=== PATIENT | male | born 1955 | race Caucasian/White ===

== ENCOUNTER 2017-05-22 12:07 | Emergency (ER) | payer OTHER ==
[2017-05-22 12:14] VITALS: TEMP 98
[2017-05-22] MEDS ORDERED: MORPHINE SULFATE 4 MG/ML SYRINGE IV STA (12:34)
[2017-05-22] MEDS ORDERED: ASPIRIN 81 MG CHEW PO STA (12:34)
[2017-05-22 13:07] LABS: Basophils # (A) 0.1 k/uL (0-0.2); Basophils % (A) 1 %; CH 32.7; CHCM 35.2; Eosinophils # (A) 0.1 k/uL (0-0.7); Eosinophils % (A) 1 %; HCT 45.1 % (39.0-53.0); HDW 2.61; HGB 15.8 gm/dL (13.0-17.5); Luc # (Auto) 0.25; Luc % (Auto) 4; Lymphocytes % (A) 34 %; MCH 32.7 pg (25.0-35.0); MCV 93.4 fL (80.0-100.0); Mean Platelet Volume 6.9; Monocytes # (A) 0.4 k/uL (0-1.0); Monocytes % (A) 7 %; Neutrophils # (A) 3.1 k/uL (1.3-7.7); Neutrophils % (A) 53 %; RBC 4.82 m/uL (4.30-5.90); RDW 13.2 % (11.5-15.5); WBC 5.8 k/uL (3.8-10.6); WBC (Perox) 5.15
[2017-05-22 13:17] LABS: ALT 62 U/L (21-72); AST 90 U/L (17-59); Alkaline Phosphatase 140 U/L (38-126); Amylase 64 U/L (30-110); Anion Gap 16 mmol/L; Blood Urea Nitrogen 16 mg/dL (9-20); Calcium 9.3 mg/dL (8.4-10.2); Carbon Dioxide 26 mmol/L (22-30); Chloride 103 mmol/L (98-107); Glucose 95 mg/dL (74-99); Magnesium 1.4 mg/dL (1.6-2.3); Non-African American GFR(MDRD) >60 (>60 ml/min/1.73 sqM); Potassium 4.2 mmol/L (3.5-5.1); Sodium 145 mmol/L (137-145); Total Bilirubin 0.6 mg/dL (0.2-1.3); Total Protein 8.1 g/dL (6.3-8.2)
[2017-05-22 13:23] LABS: Partial Thromboplastin Time 23.5 sec (22.0-30.0)
--- NOTE | 2017-05-22 13:25 | XR ---
EXAMINATION TYPE: XR chest 2V DATE OF EXAM: 05/22/2017 COMPARISON: 08/16/2011 HISTORY: Shortness of breath TECHNIQUE: Frontal and lateral views of the chest are obtained. FINDINGS: Scattered senescent parenchymal changes noted. No evidence for infiltrate. No evidence for atelectasis. Heart size is stable. Mediastinal structures are stable and grossly unremarkable. No evidence for hilar prominence. Degenerative changes dorsal spine. IMPRESSION: 1. No evidence for acute pulmonary disease.
[2017-05-22 13:26] LABS: INR 1.2 (<1.1); Prothrombin Time 11.8 sec (9.0-12.0)
[2017-05-22 13:29] LABS: Creatine Kinase 48 U/L (55-170)
[2017-05-22 13:42] LABS: Creatine Kinase MB 0.7 ng/mL (0.0-2.4); Troponin I <0.012 ng/mL (0.000-0.034)
[2017-05-22 13:58] VITALS: RESP 18
[2017-05-22] MEDS ORDERED: RX INFO: IV CONTRAST WAS GIVEN 1 EACH MISC MISCELLANE PRN (14:31)
[2017-05-22] MEDS ORDERED: LORazepam 2 MG/ML SYRINGE IV STA (14:39)
[2017-05-22] MEDS ORDERED: MORPHINE SULFATE 4 MG/ML SYRINGE IVP STA (14:39)
--- NOTE | 2017-05-22 15:35 | CT ---
EXAMINATION TYPE: CT angio chest DATE OF EXAM: 05/22/2017 COMPARISON: NONE HISTORY: Right sided breast pain CT DLP: 364 mGycm CONTRAST: CT chest with contrast and 3D reconstruction with MIP imaging is performed with IV Contrast, patient injected with 100 mL of Omnipaque 350. Contrast-enhanced CT of the chest was performed through the course of the pulmonary arteries with berta g and mediastinal window settings submitted. 3D reconstruction with MIP imaging was also performed. PULMONARY ARTERIES: The pulmonary arteries and their major tributaries are patent. I do not see marie dence for sizable filling defect to suggest pulmonary embolic process. LUNGS: The lungs are clear and free of infiltrate. No evidence for atelectasis. No pulmonary nodule or mass is detected. No pleural effusion. MEDIASTINUM: Thoracic aorta is of normal caliber . The heart is not enlarged. No evidence for media stinal mass. No mediastinal lymph nodes greater than 1cm. HILAR STRUCTURES: No evidence for mass. No hilar lymph nodes greater than 1 cm. UPPER ABDOMEN: There is evidence of fatty liver. IMPRESSION: 1. No evidence for Pulmonary embolism at this time.
--- NOTE | 2017-05-22 15:54 | ED ---
General Adult HPI - General Chief complaint: Chest Pain Stated complaint: Chest Pain Time Seen by Provider: 05/22/17 12:34 Source: patient, family, RN notes reviewed Mode of arrival: wheelchair Limitations: no limitations - History of Present Illness Initial comments: 62-year-old male with past medical history of chronic alcoholism, and chronic pain presents with right-sided chest pain which has been present for 6 months. Patient states the pain is worsened over the last 3 days. He was evaluated by his primary care physician for this pain approximately 2 weeks ago. At that time he was taken off his methadone. Patient describes the pain as sharp, nonradiating right sided chest pain. Denies any nausea or vomiting. Denies any trauma. Denies fever or chills. States he last drank last night proximally 1 pint of alcohol. - Related Data Allergies Allergy/AdvReac Type Severity Reaction Status Date / Time No Known Allergies Allergy Verified 05/22/17 12:42 Review of Systems ROS Statement: Those systems with pertinent positive or pertinent negative responses have been documented in the HPI. ROS Other: All systems not noted in ROS Statement are negative. Constitutional: Denies: fever, chills Respiratory: Denies: cough, dyspnea Cardiovascular: Denies: palpitations, dyspnea on exertion, syncope Endocrine: Denies: fatigue Gastrointestinal: Denies: abdominal pain, nausea, vomiting Past Medical History Past Medical History: Hypertension History of Any Multi-Drug Resistant Organisms: None Reported Past Surgical History: Appendectomy Past Psychological History: No Psychological Hx Reported Smoking Status: Current some day smoker Past Alcohol Use History: Daily, Heavy Past Drug Use History: None Reported General Exam Limitations: no limitations General appearance: alert, in no apparent distress Head exam: Present: atraumatic, normocephalic Eye exam: Present: normal appearance, PERRL ENT exam: Present: normal exam, normal oropharynx, mucous membranes moist Neck exam: Present: normal inspection, tenderness, full ROM Respiratory exam: Present: normal lung sounds bilaterally, respiratory distress Cardiovascular Exam: Present: regular rate, normal rhythm, normal heart sounds, other (Reproducible right anterior chest pain. There is no mass, no erythema, no external signs of trauma.) GI/Abdominal exam: Present: soft. Absent: distended, tenderness Extremities exam: Present: normal inspection, normal capillary refill. Absent: pedal edema Neurological exam: Present: alert, oriented X3. Absent: motor sensory deficit Psychiatric exam: Present: normal affect, normal mood Skin exam: Present: warm, dry Course Vital Signs 05/22/17 05/22/17 05/22/17 12:10 13:57 14:26 Temperature 98 F Pulse Rate 107 H 100 113 H Respiratory 20 18 18 Rate Blood Pressure 169/89 139/76 141/80 O2 Sat by Pulse 95 97 Oximetry 05/22/17 15:59 Temperature Pulse Rate 118 H Respiratory 18 Rate Blood Pressure 144/98 O2 Sat by Pulse 94 L Oximetry - Reevaluation(s) Reevaluation #1: 05/22/17 16:07 Patient was reevaluated at 1530. Patient states his pain was improved. At the time he was concerned with alcohol withdrawal. He was given 1 mg of Ativan. As his last drink was yesterday evening. No signs of alcohol withdrawal at this time. EKG Findings - EKG Comments: EKG Findings:: 1224 shows normal sinus rhythm with a ventricular rate 97, DE interval 142, QRS duration 68, QTC is 454 which is normal. There is no ST segment elevation or depression, there is no T-wave inversion. Medical Decision Making - Medical Decision Making 62-year-old male presenting with 6 month history of right anterior chest pain which is sharp. Patient's pain is atypical and not concerning for cardiac causes. Laboratory studies reveal a elevated d-dimer. And given the patient's mild heart rate elevation and sharp chest pain in the CT of the chest with angiography is ordered. This is negative for pulmonary embolism or any acute findings. Results of his blood work and x-rays are discussed with the patient and his spouse. Patient is instructed to see his primary care physician regarding his alcohol consumption. He will continue his outpatient workup for his chest pain. Patient and his are agreeable with this plan. Chest x-ray shows no acute findings, CT angiography is negative for pulmonary embolus. Diagnosis: Atypical chest pain, chest wall pain. - Lab Data Result diagrams: 05/22/17 12:49 05/22/17 12:49 Lab Results 05/22/17 05/22/17 05/22/17 Range/Units 12:49 12:49 12:49 WBC (3.8-10.6) k/uL RBC (4.30-5.90) m/uL Hgb (13.0-17.5) gm/dL Hct (39.0-53.0) % MCV (80.0-100.0) fL MCH (25.0-35.0) pg MCHC (31.0-37.0) g/dL RDW (11.5-15.5) % Plt Count (150-450) k/uL Neutrophils % % Lymphocytes % % Monocytes % % Eosinophils % % Basophils % % Neutrophils # (1.3-7.7) k/uL Lymphocytes # (1.0-4.8) k/uL Monocytes # (0-1.0) k/uL Eosinophils # (0-0.7) k/uL Basophils # (0-0.2) k/uL PT 11.8 (9.0-12.0) sec INR 1.2 (<1.1) APTT 23.5 (22.0-30.0) sec D-Dimer 1.10 H (<0.60) mg/L FEU Sodium 145 (137-145) mmol/L Potassium 4.2 (3.5-5.1) mmol/L Chloride 103 (98-107) mmol/L Carbon Dioxide 26 (22-30) mmol/L Anion Gap 16 mmol/L BUN 16 (9-20) mg/dL Creatinine 0.74 (0.66-1.25) mg/dL Est GFR (MDRD) Af Amer >60 (>60 ml/min/1.73 sqM) Est GFR (MDRD) Non-Af >60 (>60 ml/min/1.73 sqM) Glucose 95 (74-99) mg/dL Calcium 9.3 (8.4-10.2) mg/dL Magnesium 1.4 L (1.6-2.3) mg/dL Total Bilirubin 0.6 (0.2-1.3) mg/dL AST 90 H (17-59) U/L ALT 62 (21-72) U/L Alkaline Phosphatase 140 H (38-126) U/L Total Creatine Kinase (55-170) U/L CK-MB (CK-2) (0.0-2.4) ng/mL CK-MB (CK-2) Rel Index Troponin I (0.000-0.034) ng/mL NT-Pro-B Natriuret Pep 15 pg/mL Total Protein 8.1 (6.3-8.2) g/dL Albumin 4.5 (3.5-5.0) g/dL Amylase 64 (30-110) U/L Lipase 177 (23-300) U/L 05/22/17 05/22/17 Range/Units 12:49 12:49 WBC 5.8 (3.8-10.6) k/uL RBC 4.82 (4.30-5.90) m/uL Hgb 15.8 (13.0-17.5) gm/dL Hct 45.1 (39.0-53.0) % MCV 93.4 (80.0-100.0) fL MCH 32.7 (25.0-35.0) pg MCHC 35.0 (31.0-37.0) g/dL RDW 13.2 (11.5-15.5) % Plt Count 244 (150-450) k/uL Neutrophils % 53 % Lymphocytes % 34 % Monocytes % 7 % Eosinophils % 1 % Basophils % 1 % Neutrophils # 3.1 (1.3-7.7) k/uL Lymphocytes # 2.0 (1.0-4.8) k/uL Monocytes # 0.4 (0-1.0) k/uL Eosinophils # 0.1 (0-0.7) k/uL Basophils # 0.1 (0-0.2) k/uL PT (9.0-12.0) sec INR (<1.1) APTT (22.0-30.0) sec D-Dimer (<0.60) mg/L FEU Sodium (137-145) mmol/L Potassium (3.5-5.1) mmol/L Chloride (98-107) mmol/L Carbon Dioxide (22-30) mmol/L Anion Gap mmol/L BUN (9-20) mg/dL Creatinine (0.66-1.25) mg/dL Est GFR (MDRD) Af Amer (>60 ml/min/1.73 sqM) Est GFR (MDRD) Non-Af (>60 ml/min/1.73 sqM) Glucose (74-99) mg/dL Calcium (8.4-10.2) mg/dL Magnesium (1.6-2.3) mg/dL Total Bilirubin (0.2-1.3) mg/dL AST (17-59) U/L ALT (21-72) U/L Alkaline Phosphatase (38-126) U/L Total Creatine Kinase 48 L (55-170) U/L CK-MB (CK-2) 0.7 (0.0-2.4) ng/mL CK-MB (CK-2) Rel Index 1.5 Troponin I <0.012 (0.000-0.034) ng/mL NT-Pro-B Natriuret Pep pg/mL Total Protein (6.3-8.2) g/dL Albumin (3.5-5.0) g/dL Amylase (30-110) U/L Lipase (23-300) U/L Disposition Clinical Impression: Atypical chest pain Disposition: HOME SELF-CARE Condition: Stable Instructions: Chest Pain (ED) Additional Instructions: Patient will return to the emergency department with worsening symptoms. Patient will follow up with primary care physician in the next several days. Referrals: Emerson Ortiz DO [Primary Care Provider] - 1-2 days Time of Disposition: 15:53
[2017-05-22 16:00] VITALS: BP 144/98; PULSE 118
== END 2017-05-22 16:04 | disposition home or self-care (01) ==
LOC: EC 12:07
DX: R07.89 Other chest pain (principal); F17.200 Nicotine dependence, unspecified, uncomplicated
CPT/HCPCS: 99285; 96374; 96375; 96376; 36415; 93005; 85379; 83880; 80053; 82150; 82550; 82553; 83690; 83735; 84484; 85025; 85610; 85730; 71020; 71275; J2060; J2270; Q9967

== ENCOUNTER 2017-07-15 15:25 | Observation (INO) | payer OTHER ==
[2017-07-15] MEDS ORDERED: SODIUM CHLORIDE 0.9% 1,000 ML IV ONE (15:50)
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
[2017-07-15] MEDS ORDERED: LORazepam 2 MG/ML SYRINGE IV PRN ×2 (16:37)
[2017-07-15] MEDS: SODIUM CHLORIDE 0.9% 1,000 ML with MVI, ADULT NO.4 WITH VIT K 10 ML, THIAMINE 100 MG, F... IV ONE ×8 (16:47→19:42)
[2017-07-15 16:59] LABS: Aty Lym Flag Slight; Basophils # (A) 0.1 k/uL (0-0.2); Basophils % (A) 1 %; CH 33.4; CHCM 34.1; Eosinophils # (A) 0.1 k/uL (0-0.7); Eosinophils % (A) 2 %; HCT 38.5 % (39.0-53.0); HDW 2.73; HGB 13.2 gm/dL (13.0-17.5); Luc # (Auto) 0.28; Luc % (Auto) 5; Lymphocytes # (A) 1.9 k/uL (1.0-4.8); Lymphocytes % (A) 35 %; MCH 33.5 pg (25.0-35.0); MCHC 34.1 g/dL (31.0-37.0); MCV 98.2 fL (80.0-100.0); Mean Platelet Volume 7.5; Monocytes # (A) 0.4 k/uL (0-1.0); Monocytes % (A) 7 %; Neutrophils # (A) 2.8 k/uL (1.3-7.7); Neutrophils % (A) 51 %; RBC 3.93 m/uL (4.30-5.90); RDW 14.9 % (11.5-15.5); WBC 5.5 k/uL (3.8-10.6); WBC (Perox) 5.66
[2017-07-15 17:00] LABS: Appearance,Urine Clear (Clear); Bilirubin,Urine Negative (Negative); Glucose,Urine (UA) Negative (Negative); Ketones,Urine Negative (Negative); Leukocyte Esterase,Urine Negative (Negative); Nitrite,Urine Negative (Negative); Protein,Urine Negative (Negative); Specific Gravity,Urine 1.004 (1.001-1.035); UA Billing (MACRO vs. MICRO) CHEM; Urobilinogen,Urine <2.0 mg/dL (<2.0)
[2017-07-15] MEDS ORDERED: KETOROLAC 30 MG/ML 1 ML VIAL IVP PRN (17:11)
[2017-07-15] MEDS ORDERED: IBUPROFEN 400 MG TAB PO PRN (17:11)
[2017-07-15] MEDS ORDERED: ONDANSETRON 4 MG/2 ML VIAL IVP PRN (17:11)
[2017-07-15] MEDS ORDERED: NALOXONE 0.4 MG/ML 1 ML VIAL IV PRN (17:11)
[2017-07-15 17:25] LABS: ALT 95 U/L (21-72); AST 178 U/L (17-59); Alkaline Phosphatase 142 U/L (38-126); Amylase 75 U/L (30-110); Anion Gap 13 mmol/L; Blood Urea Nitrogen 12 mg/dL (9-20); Calcium 8.9 mg/dL (8.4-10.2); Carbon Dioxide 28 mmol/L (22-30); Chloride 111 mmol/L (98-107); Glucose 106 mg/dL (74-99); Magnesium 1.2 mg/dL (1.6-2.3); Non-African American GFR(MDRD) >60 (>60 ml/min/1.73 sqM); Potassium 4.9 mmol/L (3.5-5.1); Sodium 152 mmol/L (137-145); Total Bilirubin 0.3 mg/dL (0.2-1.3); Total Protein 7.5 g/dL (6.3-8.2)
[2017-07-15 17:36] LABS: Alcohol 513 mg/dL
[2017-07-15 19:31] VITALS: RESP 18
[2017-07-15] MEDS: SODIUM CHLORIDE 0.9% 1,000 ML IV SCH (19:45)
[2017-07-15] MEDS: THIAMINE 100 MG TAB PO SCH (20:27)
[2017-07-15] MEDS: GABAPENTIN 400 MG CAP PO SCH (20:28)
[2017-07-15] MEDS: buPROPion SR 150 MG TABLET.ER PO SCH (20:28)
[2017-07-15] MEDS: MAGNESIUM SULFATE-D5W PMX 1 GM in DEXTROSE/WATER 1 100ML.BAG IVPB SCH ×2 (21:18→22:08)
[2017-07-16] MEDS: SODIUM CHLORIDE 0.9% 1,000 ML IV SCH ×2 (04:48→13:14)
[2017-07-16] MEDS: LORazepam 2 MG/ML SYRINGE IV PRN ×2 (04:48→09:31)
[2017-07-16] MEDS ORDERED: CARVEDILOL 6.25 MG TAB PO SCH (07:30)
[2017-07-16 08:06] VITALS: BP 147/90; PULSE 90; TEMP 98.3
[2017-07-16] MEDS ORDERED: Magnesium Replacement Protocol 1 EACH MISC MISCELLANE PRN (08:50)
[2017-07-16] MEDS ORDERED: PANTOPRAZOLE 40 MG/10 ML VIAL IV SCH (09:00)
[2017-07-16] MEDS: buPROPion SR 150 MG TABLET.ER PO SCH (09:51)
[2017-07-16] MEDS: MAGNESIUM SULFATE-D5W PMX 1 GM in DEXTROSE/WATER 1 100ML.BAG IVPB SCH ×3 (09:51→12:19)
[2017-07-16] MEDS: GABAPENTIN 400 MG CAP PO SCH (09:51)
[2017-07-16] MEDS: THIAMINE 100 MG TAB PO SCH (11:19)
[2017-07-16 13:22] LABS: Anion Gap 10 mmol/L; Blood Urea Nitrogen 11 mg/dL (9-20); Carbon Dioxide 25 mmol/L (22-30); Chloride 108 mmol/L (98-107); Glucose 88 mg/dL (74-99); Non-African American GFR(MDRD) >60 (>60 ml/min/1.73 sqM); Potassium 4.2 mmol/L (3.5-5.1); Sodium 143 mmol/L (137-145)
--- NOTE | 2017-07-17 12:55 | HP ---
DATE OF ADMISSION: 07/16/17 HISTORY AND PHYSICAL EXAMINATION/DISCHARGE SUMMARY CHIEF COMPLAINT: History of change in mental status, physical limitations. HISTORY OF PRESENT ILLNESS: This 62-year-old gentleman with past medical history of multiple medical problems including history of hypertension, hyperlipidemia, history of ETOH being followed by Dr. Ortiz in the outpatient setting was complaining of tremors and weakness and tiredness as well as change in mental status. The patient was found alcohol level ( ). The patient treated symptomatically. The patient being closely monitored. There is no history of fever, rigors or chills. No history of headache, loss of consciousness or seizures. Past medical history of hypertension, hyperlipidemia. Mediations prior to admission include: Home medications are: 1. Ultram 100 mg po q8h prn. 2. Zoloft 50 mg. 3. Folic acid. 5. Neurontin 400 mg t.i.d. 6. Voltaren. 8. Coreg 6.25 mg b.i.d. 9. Vitamin D. 10. Thiamin 100 mg. 11. Multivitamins. 12. Magnesium oxide. 13. Omeprazole. 14. Wellbutrin SR. 15. Acamprosate. ALLERGIES: None. FAMILY HISTORY: History of coronary artery disease and CABG in the family. SOCIAL HISTORY: Previous history of smoking. History of alcohol intake. REVIEW OF SYSTEMS: HEENT: No diminished vision. No diminished hearing. Cardiovascular system: As mentioned earlier. Respiratory: As mentioned earlier. GI: No nausea or vomiting. : No dysuria. Nervous system: As mentioned earlier. Allergy/Immunology: No asthma or hayfever. Musculoskeletal : As mentioned earlier. Hematology/oncology: No history of anemia. Endocrine: No history of diabetes mellitus or hypothyroidism. Constitutional: As mentioned earlier. Dermatology: Negative. Rheumatology: Negative. Psychiatry: As mentioned earlier. PHYSICAL EXAMINATION: The patient is alert, oriented times three. Pulse 90. Blood pressure 147/98. Respiratory rate 18, temperature 98.2. Pulse ox 94% on room air. HEENT: Conjunctivae normal. NECK: No JVD. Cardiovascular: S1, S2 muffled. Respiratory: Breath sounds diminished at the bases. A few scattered rhonchi and crackles. Abdomen is soft, nontender. No mass palpable. Legs: No edema. No swelling. Nervous system: Higher functions as mentioned earlier. Moves all four limbs. Lymphatics: No lymph nodes palpable in the neck, axilla or groin. Skin: No ulcer, rash or bleeding. LABS: At this time, WBC 5.3, hemoglobin 13.7. Sodium 152. AST 178, ALT 95. FINAL DIAGNOSES: 1. History of alcohol abuse. 2. History of change in mental status, metabolic encephalopathy secondary to alcohol intoxication. 3. Increased AST/ALT, alcoholic hepatitis. 4. Hypertension. 5. Hyperlipidemia. RECOMMENDATIONS AND DISCUSSION: Continue the current medications. Continue symptomatic treatment. Otherwise, alcohol cessation recommended. See orders for details. Supplement vitamins. Ativan prn. Closely follow with primary care physician. Guarded prognosis. Further recommendations to follow. MTDD
== END 2017-07-16 14:15 | disposition home or self-care (01) ==
LOC: EC 15:25 → 3OBS 17:11
PROVIDERS: ADMIT Internal Medicine; ATTEND Internal Medicine
DX: G93.41 Metabolic encephalopathy (principal); F10.239 Alcohol dependence with withdrawal, unspecified; Y90.8 Blood alcohol level of 240 mg/100 ml or more; Z79.899 Other long term (current) drug therapy; I10 Essential (primary) hypertension; Z87.891 Personal history of nicotine dependence; E78.5 Hyperlipidemia, unspecified; Z82.49 Family history of ischemic heart disease and other diseases of the circulatory system; K70.10 Alcoholic hepatitis without ascites
CPT/HCPCS: 96365; 96366 ×2; 96367; 96375 ×2; 96376; 82075; 96361; 99285; 36415; 80053; 80048; 82150; 83690; 83735 ×2; 85025; 81003; 80306; 80320; G0378 ×2; J2060 ×2; J3411; S0106 ×2; J3475 ×2; C9113

== ENCOUNTER → 2023-10-14 | Outpatient (CLI) | payer OTHER ==
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
== END | disposition home or self-care (01) ==
LOC: RADUSWWP 10:55
DX: I73.9 Peripheral vascular disease, unspecified (principal)
CPT/HCPCS: 93880

== ENCOUNTER 2023-10-21 19:01 | Emergency (ER) | payer OTHER ==
[2023-10-21 19:16] VITALS: RESP 20; TEMP 97.6
[2023-10-21] MEDS ORDERED: KETOROLAC 15 MG/ML 1 ML VIAL IM STA (19:48)
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
--- NOTE | 2023-10-21 20:39 | XR ---
EXAMINATION TYPE: XR shoulder complete RT DATE OF EXAM: 10/21/2023 COMPARISON: NONE HISTORY: Pain TECHNIQUE: Shoulder examined in 3 projections. FINDINGS: The humeral head articulates with the glenoid. The acromio-clavicular junction is normal. No acute fractures or dislocations are evident. A follow up study can be performed 7-10 days from acute trauma for continued pain. MRI can be perfor med if soft tissue evaluation would be of benefit. IMPRESSION: 1. No acute osseous right shoulder abnormality.
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
[2023-10-21] MEDS ORDERED: HYDROmorphone 1 MG/ML 1 ML SYRINGE IM STA (20:54)
[2023-10-21] MEDS ORDERED: BACITRACIN OINT 1 EACH PACKET TOPICAL ONE (21:17)
[2023-10-21] MEDS ORDERED: ACET/COD 300 MG/30 MG STARTER PACK 6 TAB BTL PO STA (21:21)
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
--- NOTE | 2023-10-21 22:00 | XR ---
EXAMINATION TYPE: XR hand complete LT DATE OF EXAM: 10/21/2023 COMPARISON: None HISTORY: Dislocated thumb TECHNIQUE: 3 view left hand FINDINGS: The proximal and distal phalanx orientation. No acute fracture post reduction is evident. Advanced degenerative changes at the first metacarpophalangeal joint spaces. Suspect some small calcification at the third metacarpal phalangeal joint space. This may be chronic. No donor site or acute fractures evident. IMPRESSION: 1. Reduction of previous dislocation distal phalanx thumb.
[2023-10-21 22:35] VITALS: BP 100/62; PULSE 86
== END 2023-10-21 22:21 | disposition home or self-care (01) ==
LOC: EC 19:01 → MERGE 19:01 → EC 22:21
DX: S63.125A Dislocation of interphalangeal joint of left thumb, initial encounter (principal); I10 Essential (primary) hypertension; F17.200 Nicotine dependence, unspecified, uncomplicated; V47.6XXA Car passenger injured in collision with fixed or stationary object in traffic accident, initial encounter; Y92.410 Unspecified street and highway as the place of occurrence of the external cause
CPT/HCPCS: 26700; 99285; 96372 ×2; 93005; 72170; 73030; 73110; 73130; 73562; 71046; 72125; 70450; J1170; J1885

== ENCOUNTER 2023-10-29 14:13 | Emergency (ER) | payer OTHER ==
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
[2023-10-29 17:38] VITALS: BP 158/96; PULSE 98; RESP 18; TEMP 98.1
== END 2023-10-29 17:34 | disposition left against medical advice (07) ==
LOC: EC 14:13
DX: M79.89 Other specified soft tissue disorders (principal); I10 Essential (primary) hypertension; Z79.899 Other long term (current) drug therapy; Z53.29 Procedure and treatment not carried out because of patient's decision for other reasons
CPT/HCPCS: 93970; 99283